=== PATIENT | male | born 2000 | race Caucasian/White ===

== ENCOUNTER 2019-03-13 01:51 | Emergency (ER) | payer OTHER ==
[2019-03-13 02:02] VITALS: RESP 18; TEMP 98.3
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
[2019-03-13] MEDS ORDERED: KETOROLAC 30 MG/ML 1 ML VIAL IVP STA (02:58)
[2019-03-13 03:06] VITALS: BP 125/76; PULSE 60
== END 2019-03-13 03:20 | disposition home or self-care (01) ==
LOC: EC 01:51
DX: S09.90XA Unspecified injury of head, initial encounter (principal); M54.2 Cervicalgia; V48.5XXA Car driver injured in noncollision transport accident in traffic accident, initial encounter; Y93.89 Activity, other specified; Y92.410 Unspecified street and highway as the place of occurrence of the external cause
CPT/HCPCS: 71046; 72125; 70450; 99284; 96374; J1885

== ENCOUNTER 2019-09-19 07:55 | Day surgery (SDC) | payer BC ==
[2019-09-17 09:36] VITALS: BMI 28.3
[~2019-09-19 07:55] MED LIST: LACTATED RINGERS 1,000 ML IV SCH
--- NOTE | 2019-09-19 08:00 | P.GSHP ---
History of Present Illness H&P Date: 09/19/19 CHIEF COMPLAINT: Rectal bleeding HISTORY OF PRESENT ILLNESS: The patient is a 19-year-old male who presents for colon screen. Lower endoscopy was offered for further evaluation and management. PAST MEDICAL HISTORY: Please see list. PAST SURGICAL HISTORY: Please see list. MEDICATIONS: Please see list. ALLERGIES: Please see list. SOCIAL HISTORY: No illicit drug use FAMILY HISTORY: No reports of Crohn disease or ulcerative colitis. REVIEW OF ORGAN SYSTEMS: CONSTITUTIONAL: No reports of fevers or chills. PHYSICAL EXAM: VITAL SIGNS: Stable GENERAL: Well-developed pleasant in no acute distress. HEENT: No scleral icterus. Extraocular movements grossly intact. Moist buccal mucosa. NECK: Supple without lymphadenopathy. CHEST: Unlabored respirations. Equal bilateral excursions. CARDIOVASCULAR: Regular rate and rhythm. Distal 2+ pulses. ABDOMEN: Soft, nontender, nondistended. MUSCULOSKELETAL: No clubbing, cyanosis, or edema. ASSESSMENT: 1. Change in bowel habits with rectal bleeding PLAN: 1. Recommend proceeding with a lower endoscopy Past Medical History Past Medical History: No Reported History Additional Past Medical History / Comment(s): BLOODY STOOLS FOR PAST 6-8 MONTHS History of Any Multi-Drug Resistant Organisms: None Reported Past Surgical History: No Surgical Hx Reported Past Anesthesia/Blood Transfusion Reactions: No Reported Reaction Smoking Status: Never smoker - Past Family History Mother Family Medical History: No Reported History Medications and Allergies Home Medications Medication Instructions Recorded Confirmed Type No Known Home Medications 09/17/19 09/17/19 History Allergies Allergy/AdvReac Type Severity Reaction Status Date / Time No Known Allergies Allergy Verified 09/17/19 09:30
[2019-09-19] MEDS ORDERED: LIDOCAINE 1% (10MG/ML) FOR IV START INTRADERMA ONE (08:25)
[2019-09-19 08:38] VITALS: RESP 16; TEMP 97
[2019-09-19] MEDS ORDERED: PROPOFOL 10 MG/ML 20 ML VIAL IV ONE (09:13)
--- NOTE | 2019-09-19 09:58 | P.PCN ---
Date of Procedure: 09/19/19 Description of Procedure: PREOPERATIVE DIAGNOSIS: Rectal bleeding Anorectal pain POSTOPERATIVE DIAGNOSIS: Anal fissure Internal hemorrhoid, grade 2 OPERATION: Colonoscopy to the cecum, ileocecal valve and appendiceal orifice. SURGEON: Margie Thomason MD. ANESTHESIA: MAC. INDICATIONS: The patient is a 19-year-old male who presents with 6 months rectal bleeding. He also reports and rectal pain.Benefits and risks were described and informed consent was obtained. DESCRIPTION OF PROCEDURE: The patient had undergone Suprep. He had been brought into the operating room and laid in the left lateral decubitus position. After adequate intravenous sedation, the rectum was examined with 2% lidocaine jelly. No external hemorrhoids were encountered. The rectal tone was within normal limits. 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 No lesions were palpated in the rectal vault. An Olympus colonoscope was advanced until the cecum, ileocecal valve and appendiceal orifice were clearly viewed. The prep was fair. The scope was removed with visualization of each mucosal fold. Scattered diverticulosis was encountered. No colonic polyps were found. No evidence of focal colitis was found. Retroflexion of the scope demonstrated grade 2 internal hemorrhoids without active bleeding or inflammation. The colon was desufflated. The patient had tolerated the procedure well. Withdrawal time was over 6 minutes. FINDINGS: Aronchick preparation quality scale 2 (1-5) Internal hemorrhoids, grade 2 No external prolapsed hemorrhoids. No arteriovenous malformations. No adenomatous polyps. No focal colitis. Anal fissure. RECOMMENDATIONS: Lower endoscopy as needed. Lidocaine 5% cream prescribed for anal fissure Plan - Discharge Summary Discharge Rx Participant: No New Discharge Prescriptions: New Lidocaine [Lidocaine 5% Rectal Cream] 1 applic RECTAL TID #30 gm Discharge Medication List Lidocaine [Lidocaine 5% Rectal Cream] 1 applic RECTAL TID #30 gm 09/19/19 [Rx] Follow up Appointment(s)/Referral(s): Margie Thomason MD [STAFF PHYSICIAN] - 09/24/19 Patient Instructions/Handouts: Rectal Bleeding (GEN), Anal Fissure (DC), Hemorrhoids (DC) Discharge Disposition: HOME SELF-CARE
[2019-09-19 09:59] VITALS: BP 115/60; PULSE 55
== END 2019-09-19 10:10 | disposition home or self-care (01) ==
LOC: ORWHC2ENDO 07:55
PROVIDERS: ATTEND Surgery Plastic and Reconstructive Surgery
DX: K60.1 Chronic anal fissure (principal); K64.1 Second degree hemorrhoids; E66.9 Obesity, unspecified; Z68.28 Body mass index [BMI] 28.0-28.9, adult; Z98.890 Other specified postprocedural states
CPT/HCPCS: 45378; J2704

== ENCOUNTER → 2019-12-23 | Outpatient (CLI) | payer BC ==
--- NOTE | 2019-12-24 07:48 | CT ---
EXAMINATION TYPE: CT abdomen pelvis w con DATE OF EXAM: 12/23/2019 COMPARISON: None. HISTORY: Generalized abdominal/pelvic pain and difficulty urinating x several months. CT DLP: 613.1 mGycm, Automated Exposure Control for Dose Reduction was Utilized. CONTRAST: CT scan of the abdomen and pelvis is performed with oral and with IV Contrast, patient injected with 100ml mL of Isovue 300. FINDINGS: LUNG BASES: No significant abnormality is appreciated. LIVER/GB: No significant abnormality is appreciated. PANCREAS: No significant abnormality is seen. SPLEEN: No significant abnormality is seen. ADRENALS: No significant abnormality is seen. KIDNEYS: Symmetric cortical medullary uptake. Delayed phase imaging either not performed or not sent to PACS for interpretation. No concerning renal masses or hydronephrosis seen bilaterally. BOWEL: Oral contrast reaches level of the splenic flexure. No suspicious small or large bowel dilatat ion. PROSTATE/SEMINAL VESICLES: No gross abnormality seen. LYMPH NODES: No greater than 1cm abdominal or pelvic lymph nodes are appreciated. OSSEOUS STRUCTURES: No significant abnormality is seen. OTHER: No significant additional abnormality is seen. IMPRESSION: No significant finding is seen to account for patient's clinical symptoms of generalized pain and dysuria.
== END | disposition home or self-care (01) ==
LOC: RADCTMAIN 14:45
PROVIDERS: ATTEND Surgery Plastic and Reconstructive Surgery
DX: K65.1 Peritoneal abscess (principal)
CPT/HCPCS: 74177; Q9967